=== PATIENT | male | born 1995 | race Caucasian/White ===

== ENCOUNTER 2016-06-25 16:45 | Emergency (ER) | payer BC ==
[~2016-06-25] VITALS: Ht 182.9 cm; Wt 78.2 kg
[2016-06-25 17:10] VITALS: TEMP 37; Ht 182.9 cm; Wt 78.2 kg
--- NOTE | 2016-06-25 18:40 | DIAGNOSTIC IMAGING REPORT ---
TESTICULAR ULTRASOUND CLINICAL HISTORY: Right testicle pain x 1 week COMPARISON STUDY: No previous studies for comparison. FINDINGS: The right testis measures 41 x 27 x 22 mm. The left testis measures 36 x 22 x 27 mm. No intratesticular masses are visualized. There is a 5 mm right sided appendix epididymis. There is a 7 mm left-sided epididymal cyst. There is no evidence of testicular torsion. There is no evidence of hyperemia IMPRESSION: 1. No evidence of intratesticular mass 2. No evidence of testicular torsion Electronically signed by: Eusebio Denise M.D. 06/25/2016 6:38 PM Dictated Date/Time: 06/25/2016 6:36 PM
[2016-06-25 19:19] VITALS: BP 148/74; PULSE 65; O2SAT 99
--- NOTE | 2016-06-26 16:23 | EMERGENCY ROOM VISIT NOTE ---
History First contact with patient: 17:24 Chief Complaint: TESTICULAR PAIN Stated Complaint: TESTICULAR & LOW ABDOMINAL PAIN/TENDERNESS Nursing Triage Summary: Pain in right testicle for 1 week. Comes and goes. More painful when "moving the wrong way". Denies urinary symptoms. History of Present Illness The patient is a 21 year old male who presents to the Emergency Room with complaints of right testicular tenderness off-and-on for the past week. The patient states his discomfort is mild, but worsens when he twists or sits the wrong way. He is in a mutually monogamous relationship and does not have concern for STDs. He has not had drainage from the end of the penis. No reported rashes or lesions. The patient does not have back pain, fever, chills , or abdominal pain. He rates his discomfort a 4/10. Review of Systems More than 10 systems were reviewed and otherwise negative with the exception of history of present illness. Past Medical/Surgical History No chronic medical disease Family History No pertinent family history Social History Smoking Status: Never Smoker Marital Status: in relationship Current/Historical Medications No Active Prescriptions or Reported Meds Allergies Coded Allergies: No Known Allergies (Unverified , 06/25/16) Physical Exam Vital Signs Date Time Temp Pulse Resp B/P Pulse Ox O2 Delivery O2 Flow Rate FiO2 06/25/16 19:19 65 18 148/74 99 06/25/16 18:53 65 18 148/74 99 Room Air 06/25/16 17:10 37.0 73 17 161/88 93 Room Air Pain Rating (0-10): 3.0 Physical Exam VITALS: Vitals are noted on the nurse's note and reviewed by myself. Vital signs stable. GENERAL: Well-developed, well-nourished, white male, who is in no acute distress and resting comfortably. Patient is cooperative with the examination. HEAD: Normocephalic atraumatic. HEART: Regular rate and rhythm without murmurs gallops or rubs. LUNGS: Clear to auscultation bilaterally without wheezes, rales or rhonchi. No retractions or accessory muscle use. ABDOMEN: Positive normal bowel sounds x 4. Soft, nontender, without masses or organomegaly. No guarding or rebound tenderness. No CVA tenderness : Normal-appearing external male genitalia. No urethral drainage or discharge noted. No rash or lesion. No obvious palpable tenderness or mass appreciated throughout the scrotal sac or testicles. Medical Decision & Procedures ER Provider Diagnostic Interpretation: TESTICULAR ULTRASOUND CLINICAL HISTORY: Right testicle pain x 1 week COMPARISON STUDY: No previous studies for comparison. FINDINGS: The right testis measures 41 x 27 x 22 mm. The left testis measures 36 x 22 x 27 mm. No intratesticular masses are visualized. There is a 5 mm right sided appendix epididymis. There is a 7 mm left-sided epididymal cyst. There is no evidence of testicular torsion. There is no evidence of hyperemia IMPRESSION: 1. No evidence of intratesticular mass 2. No evidence of testicular torsion ED Course Physical exam and history were performed. Nursing notes and EMR were reviewed. Patient appears to have testicle pain off and on for the past week. Ultrasound was performed, and does not appear to show acute finding such as mass, infection , or torsion. The patient does not have a history exam that seems consistent with kidney stone or abdominal etiology. There is no mass on exam to suggest hernia. The patient appears well for discharge, and I do recommend that he follow with urology for his symptoms. The patient does not desire STD testing at this time, that is certainly also a consideration. The patient may use over- the-counter analgesics and was certainly invited back to the ER with any new, worsening, or concerning symptoms. The chart was completed utilizing [employer] Speech Voice Recognition Software. Grammatical errors, random word insertions, pronoun errors, and incomplete sentences are an occasional consequence of this system due to software limitations, ambient noise, and hardware issues. Any formal questions or concerns about the content, text, or information contained within the body of this dictation should be directly addressed to the provider for clarification. . Medical Decision Differential diagnosis: Etiologies such as torsion, mass, infection, hernia, hydrocele, epididymitis, trauma, intra-abdominal process, as well as others were entertained. Impression Primary Impression: Pain in testicle Departure Information Dispostion Home / Self-Care Condition GOOD Prescriptions No Active Prescriptions or Reported Meds Referrals Gary Palma M.D. Forms HOME CARE DOCUMENTATION FORM, IMPORTANT VISIT INFORMATION Patient Instructions My [facility] Additional Instructions You were seen and evaluated today on an emergency basis only. This is not a substitute for, or an effort to provide, complete comprehensive medical care. It is not possible to recognize and treat all injuries or illnesses in a single emergency department visit. For this reason it is recommended that you followup with Urology, Dr. Palma' s office, by telephone in the morning to arrange a follow-up appointment next week. Let them know you were seen in the ER to help make appointment. For baseline pain relief you may alternate ibuprofen and acetaminophen every 4 hours for pain control. Take 600 mg ibuprofen (Advil) and then 4 hours later take 1000 mg acetaminophen (Tylenol). Do not take more than 3000 mg acetaminophen in a single day. You are welcome to return to the emergency department anytime with new, worsening, or concerning symptoms.
== END 2016-06-25 19:18 | disposition home or self-care (01) ==
LOC: C.EDB 16:47 → C.EDD 19:18
DX: N50.811 Right testicular pain (principal)

== ENCOUNTER 2016-07-22 08:05 | Emergency (ER) | payer BC ==
[~2016-07-22] VITALS: Ht 182.9 cm; Wt 80.4 kg
[2016-07-22 08:07] VITALS: TEMP 36.3; Ht 182.9 cm; Wt 80.4 kg
[2016-07-22] MEDS ORDERED: DiphenhydrAMINE HCL 50 MG/ML VIAL IV STA (08:25)
[2016-07-22] MEDS ORDERED: SODIUM CHLORIDE 0.9% 1000ML 1,000 ML IV STA (08:25)
[2016-07-22] MEDS ORDERED: FAMOTIDINE 20MG/102 ML D5W IV STA (08:25)
[2016-07-22] MEDS ORDERED: DEXAMETHASONE SOD INJ 10 MG/ML VIAL IV ONE (08:30)
[2016-07-22] MEDS ORDERED: MULT-506 PO (08:36)
[2016-07-22] MEDS ORDERED: IBUP-1050 PO (08:36)
--- NOTE | 2016-07-22 08:52 | EMERGENCY ROOM VISIT NOTE ---
History First contact with patient: 08:16 Chief Complaint: RASH Stated Complaint: HIVE/RASH OUTBREAK, SORETHROAT History of Present Illness The patient is a 21 year old male who presents to the Emergency Room with complaints of rash. The patient states that 2 weeks ago he noticed a few red spots on his arm. He states that 5 days ago he developed a sore throat. He states that last night the rash spread and was significantly worse. He states the rash is very itchy. He denies any pain. He denies any earache, cough or fever. He denies any pain in his chest or trouble breathing. He denies any abdominal pain, nausea or vomiting. He denies any recent antibiotic use. He denies any change in environmental factors. He denies any history of similar. Review of Systems A 10 system review of systems was completed with positives and pertinent negatives listed in the HPI. Past Medical/Surgical History Patient denies Social History Smoking Status: Never Smoker Marital Status: in relationship Occupation Status: [employer] student Current/Historical Medications Scheduled Multivitamin (Multivitamin), 1 TAB PO DAILY Prednisone (Prednisone), 50 MG PO DAILY Miscellaneous Medications Ibuprofen (Advil), 200 MG PO Allergies Coded Allergies: No Known Allergies (Unverified , 07/22/16) Physical Exam Vital Signs Date Time Temp Pulse Resp B/P Pulse Ox O2 Delivery O2 Flow Rate FiO2 07/22/16 10:21 74 16 135/74 99 07/22/16 09:29 77 16 116/72 99 Room Air 07/22/16 08:07 36.3 85 18 145/76 100 Room Air Physical Exam VITALS: Vitals are noted on the nurse's note and reviewed by myself. Vital signs stable. The patient is afebrile. He is not tachycardic, tachypneic or hypoxic. GENERAL: This is a 21-year-old male, in no acute distress, nondiaphoretic, well- developed well-nourished. SKIN: There multiple papular, erythematous lesions over the extremities and torso. On the abdomen, the lesions have the appearance of wheals. There are palpable lesions on the lower extremities as well as the sole of the feet. There is no rash on the hand. There are no mucosal lesions. There is no tenting of the skin. Capillary reflex less than 2 seconds. HEAD: Normocephalic atraumatic. EARS: External auditory canals clear, tympanic membranes pearly saenz without erythema or effusion bilaterally. EYES: Pupils equal round and reactive to light and accommodation. Conjunctivae without injection, sclerae without icterus. Extraocular movements intact. NOSE: Patent, turbinates without inflammation or discharge. MOUTH: Mucous membranes moist. Tonsils are not enlarged. Pharynx without erythema or exudate. Uvula midline. Airway patent. Tongue does not deviate. NECK: Supple without nuchal rigidity. No lymphadenopathy. No thyromegaly. Cervical spine is nontender. No JVD. HEART: Regular rate and rhythm without murmurs gallops or rubs. LUNGS: Clear to auscultation bilaterally without wheezes, rales or rhonchi. No retractions or accessory muscle use. ABDOMEN: Positive bowel sounds x 4. Soft, nontender, without masses or organomegaly. MUSCULOSKELETAL: No muscle atrophy, erythema, or edema noted. Full range of motion in all extremities. Normal gait. Strength 5/5 throughout. NEURO: Patient was alert and oriented to person place and time. No focal neurological deficits. Medical Decision & Procedures Laboratory Results 07/22/16 08:40 Red Blood Count 5.41, Mean Corpuscular Volume 87.4, Mean Corpuscular Hemoglobin 30.7, Mean Corpuscular Hemoglobin Concent 35.1, Mean Platelet Volume 10.4, Neutrophils (%) (Auto) 78.6, Lymphocytes (%) (Auto) 13.6, Monocytes (%) (Auto) 6.8, Eosinophils (%) (Auto) 0.6, Basophils (%) (Auto) 0.1, Neutrophils # (Auto) 8.39, Lymphocytes # (Auto) 1.45, Monocytes # (Auto) 0.72, Eosinophils # (Auto) 0.06, Basophils # (Auto) 0.01 07/22/16 08:40 Test 07/22/16 08:40 White Blood Count 10.66 K/uL (4.8-10.8) Red Blood Count 5.41 M/uL (4.7-6.1) Hemoglobin 16.6 g/dL (14.0-18.0) Hematocrit 47.3 % (42-52) Mean Corpuscular Volume 87.4 fL (80-100) Mean Corpuscular Hemoglobin 30.7 pg (25-34) Mean Corpuscular Hemoglobin Concent 35.1 g/dl (32-36) Platelet Count 214 K/uL (130-400) Mean Platelet Volume 10.4 fL (7.4-10.4) Neutrophils (%) (Auto) 78.6 % Lymphocytes (%) (Auto) 13.6 % Monocytes (%) (Auto) 6.8 % Eosinophils (%) (Auto) 0.6 % Basophils (%) (Auto) 0.1 % Neutrophils # (Auto) 8.39 K/uL (1.4-6.5) Lymphocytes # (Auto) 1.45 K/uL (1.2-3.4) Monocytes # (Auto) 0.72 K/uL (0.11-0.59) Eosinophils # (Auto) 0.06 K/uL (0-0.5) Basophils # (Auto) 0.01 K/uL (0-0.2) RDW Standard Deviation 40.0 fL (36.4-46.3) RDW Coefficient of Variation 12.5 % (11.5-14.5) Immature Granulocyte % (Auto) 0.3 % Immature Granulocyte # (Auto) 0.03 K/uL (0.00-0.02) Anion Gap 10.0 mmol/L (3-11) Est Creatinine Clear Calc Drug Dose 115.6 ml/min Estimated GFR () 109.9 Estimated GFR (Non- 94.8 BUN/Creatinine Ratio 15.7 (10-20) Calcium Level 9.3 mg/dl (8.5-10.1) Total Bilirubin 0.5 mg/dl (0.2-1) Aspartate Amino Transf (AST/SGOT) 16 U/L (15-37) Alanine Aminotransferase (ALT/SGPT) 28 U/L (12-78) Alkaline Phosphatase 98 U/L (45-117) Total Protein 7.4 gm/dl (6.4-8.2) Albumin 4.0 gm/dl (3.4-5.0) Globulin 3.4 gm/dl (2.5-4.0) Albumin/Globulin Ratio 1.2 (0.9-2) Monoscreen NEG (NEG) Medications Administered Medications (Trade) Dose Ordered Sig/Taylor Route Start Time Stop Time Status Last Admin Dose Admin Sodium Chloride (Nss 1000ml) 1,000 ml @ 999 mls/hr Q1H1M STAT IV 07/22/16 08:25 07/22/16 09:25 DC 07/22/16 08:36 999 MLS/HR Dexamethasone Sodium Phosphate (Decadron Inj) 10 mg NOW ONCE IV 07/22/16 08:30 07/22/16 08:31 DC 07/22/16 08:37 10 MG Diphenhydramine HCl (Benadryl Inj) 25 mg NOW STAT IV 07/22/16 08:25 07/22/16 08:28 DC 07/22/16 08:37 25 MG Famotidine (Pepcid 20mg/100 ml) 20 mg ONE STAT IV 07/22/16 08:25 07/22/16 08:28 DC 07/22/16 08:36 20 MG ED Course The patient was seen and examined. Previous visits were reviewed. The patient does not have a fever or leukocytosis. He does not have any significant electrolyte abnormalities. Stone was negative. Strep was negative. The patient was hydrated with normal saline He was given 10 mg IV Decadron, 25 mg IV Benadryl and 20 mg IV Pepcid The patient's rash completely resolved with the above treatment The patient has had a sore throat and a diffuse rash. The rash is itchy. He does have the appearance of urticaria on the abdomen. The patient's symptoms resolved with the above treatment and this is most likely allergic urticaria. The patient was given a prescription for prednisone and encouraged to continue antihistamines including an H2 tana and an H1 tana. He should return with any worsening symptoms. Otherwise, he should follow-up with his family doctor next week. The case was discussed with who agrees with the assessment and treatment plan Medical Decision The differential diagnosis includes viral exanthem, urticaria, purpura, among others Impression Primary Impression: Urticaria Departure Information Dispostion Home / Self-Care Condition GOOD Prescriptions Prednisone (Prednisone) 50 Mg Tab 50 MG PO DAILY for 4 Days, #4 TAB Prov: Edwige Fischer PA-C 07/22/16 Referrals No Doctor, Assigned (PCP) Patient Instructions ED Urticaria, [facility] Additional Instructions Prednisone, as prescribed until finished Continue an antihistamine such as Benadryl, Zyrtec or Claritin daily for the next 5 days Try an H2 tana such as Zantac or Pepcid once daily for the next 5 days Return to the emergency Department with any worsening symptoms Otherwise, follow up with [facility] or dermatology if symptoms persist
[2016-07-22 09:01] LABS: BASO % 0.1 %; BASO ABS # 0.01 K/uL (0-0.2); COMPLETE YES; EOS % 0.6 %; HEMATOCRIT 47.3 % (42-52); IG% 0.3 %; LYMPH % 13.6 %; LYMPH ABS # 1.45 K/uL (1.2-3.4); MEAN CELL VOLUME 87.4 fL (80-100); MEAN CORPUSCULAR HEMOGLOBIN 30.7 pg (25-34); MEAN CORPUSCULAR HGB CONC 35.1 g/dl (32-36); MEAN PLATELET VOLUME 10.4 fL (7.4-10.4); MONO % 6.8 %; NEUT % 78.6 %; PLATELET COUNT 214 K/uL (130-400); RED BLOOD COUNT 5.41 M/uL (4.7-6.1); WHITE BLOOD COUNT 10.66 K/uL (4.8-10.8)
[2016-07-22 09:09] LABS: BUN/CREATININE RATIO 15.7 (10-20); CALCIUM 9.3 mg/dl (8.5-10.1); CREATININE 1.1 mg/dl (0.60-1.40); POTASSIUM 3.9 mmol/L (3.5-5.1)
[2016-07-22 09:12] LABS: ALB/GLOB RATIO 1.2 (0.9-2)
[2016-07-22] MEDS ORDERED: PRED50TA PO (10:04)
[2016-07-22 10:21] VITALS: BP 135/74; PULSE 74; O2SAT 99
== END 2016-07-22 10:21 | disposition home or self-care (01) ==
LOC: C.EDB 08:06 → C.EDA 10:21
DX: R21 Rash and other nonspecific skin eruption (principal); J02.9 Acute pharyngitis, unspecified; L50.9 Urticaria, unspecified